=== PATIENT | female | born 2000 | race Caucasian/White ===

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

== ENCOUNTER → 2018-09-01 | Outpatient (CLI) | payer SELFPAY ==
[~2018-09-01] MED LIST: AMOX500T2 PO; FLUT9.9S NSEACH
--- NOTE | 2018-09-01 09:59 | Diagnostic Imaging Report ---
PROCEDURE: US Gallbladder. TECHNIQUE: Multiple real-time grayscale images were obtained over the right upper quadrant in various projections. INDICATION: Abdominal pain. COMPARISON: There are no prior studies available for comparison. FINDINGS: There is no evidence for cholelithiasis or acute cholecystitis and the common bile duct is not dilated. The liver does not appear to be enlarged. There is no focal mass involving the liver and the biliary tree is not abnormally distended. Spectral and color flow imaging of the portal vein and hepatic vein shows that the veins are patent and that there is normal directional flow within the veins. The right kidney is unremarkable. The pancreas is partially secured by bowel gas but shows no definite abnormality. The aorta and inferior vena cava where visualized are unremarkable. IMPRESSION: 1. There is no evidence for an acute abnormality of the right upper quadrant. 2. If clinical concern regarding an underlying abnormality of the gallbladder persists, then a nuclear medicine hepatobiliary scan would be recommended for further study. Dictated by: Dictated on workstation # [id number]
== END ==
LOC: RAD 08:46
PROVIDERS: ATTEND Nurse Practitioner Family
DX: G89.29 Other chronic pain (principal); R10.11 Right upper quadrant pain
CPT/HCPCS: 76705

== ENCOUNTER 2022-01-31 15:20 | Outpatient (CLI) | payer BC ==
[2022-01-31 15:30] VITALS: BP 99/51
[2022-01-31] MEDS ORDERED: PREN-8 PO (15:31)
--- NOTE | 2022-02-01 08:24 | Physician Query-Final Dx ---
STEPHENIE,02/01/22 0824: Clinic Account Progress/Dx Physician Query: Please give diagnosis Please include # weeks gestation Date of Service Jan 31, 2022 at 15:20 WILLIAMS CASTANO MD 02/01/22 1006: Clinic Account Progress/Dx DIAGNOSIS: Diagnosis 27 weeks gestation with decreased movement STEPHENIE,OctFeb 01, 2022 08:24 WILLIAMS CASTANO MD Feb 01, 2022 10:06
== END 2022-01-31 15:43 | disposition home or self-care (01) ==
LOC: WSo 15:20 → MERGE 15:20 → WSo 15:43
PROVIDERS: ATTEND Obstetrics & Gynecology
DX: O36.8120 Decreased fetal movements, second trimester, not applicable or unspecified (principal); Z3A.27 27 weeks gestation of pregnancy
CPT/HCPCS: 99213

== ENCOUNTER → 2022-02-05 | Outpatient (CLI) ==
[~2022-02-05] MED LIST changes: +PREN-8 PO
== END ==
LOC: LABNPT 17:38
PROVIDERS: ATTEND Obstetrics & Gynecology
DX: Z53.9 Procedure and treatment not carried out, unspecified reason (principal)

== ENCOUNTER → 2022-02-05 | Outpatient (CLI) ==
[2022-02-05 17:56] LABS: HEMATOCRIT 32 % (35-52); HEMOGLOBIN 10.8 g/dL (11.5-16.0); MEAN CORPUSCULAR HEMOGLOBIN 31 pg (25-34); MEAN CORPUSCULAR HGB CONC 34 g/dL (32-36); MEAN CORPUSCULAR VOLUME 91 fL (80-99); MEAN PLATELET VOLUME 9.9 fL (9.0-12.2); PLATELET COUNT 278 10^3/uL (130-400); WHITE BLOOD COUNT 9.8 10^3/uL (4.3-11.0)
== END ==
LOC: LABNPT 17:45
PROVIDERS: ATTEND Obstetrics & Gynecology
DX: O36.0190 Maternal care for anti-D [Rh] antibodies, unspecified trimester, not applicable or unspecified (principal); Z23 Encounter for immunization; Z3A.00 Weeks of gestation of pregnancy not specified
CPT/HCPCS: 82950; 85027

== ENCOUNTER → 2022-04-01 | Outpatient (CLI) | payer BC | LOC: LABNPT 11:24 | PROVIDERS: ATTEND Obstetrics & Gynecology | DX: R80.9 Proteinuria, unspecified (principal) | CPT/HCPCS: 82570; 84156 ==

== ENCOUNTER 2022-04-18 16:20 | Inpatient (IN) | payer BC ==
[~2022-04-18] VITALS: Ht 155 cm; Wt 80.6 kg
[2022-04-18] VITALS (16 sets, daily range): BP systolic 107–127; BP diastolic 59–72
[2022-04-18 16:55] LABS: BASOPHILS % (AUTO) 0 % (0-10); EOSINOPHILS % (AUTO) 1 % (0-10); HEMATOCRIT 34 % (35-52); HEMOGLOBIN 11.3 g/dL (11.5-16.0); LYMPHOCYTES # (AUTO) 1.3 10^3/uL (1.0-4.0); LYMPHOCYTES % (AUTO) 17 % (12-44); MEAN CORPUSCULAR HEMOGLOBIN 29 pg (25-34); MEAN CORPUSCULAR HGB CONC 33 g/dL (32-36); MEAN CORPUSCULAR VOLUME 86 fL (80-99); MEAN PLATELET VOLUME 9.9 fL (9.0-12.2); MONOCYTES # (AUTO) 0.6 10^3/uL (0.0-1.0); MONOCYTES % (AUTO) 8 % (0-12); NEUTROPHILS # (AUTO) 5.4 10^3/uL (1.8-7.8); NEUTROPHILS % (AUTO) 74 % (42-75); PLATELET COUNT 232 10^3/uL (130-400); WHITE BLOOD COUNT 7.3 10^3/uL (4.3-11.0)
[2022-04-18 17:16] LABS: URINE CREATININE FOR RATIO 9 MG/DL (30-125)
[2022-04-18 17:17] LABS: ALBUMIN 3.4 GM/DL (3.2-4.5); BILIRUBIN,TOTAL 0.4 MG/DL (0.1-1.0); CALCIUM 9.4 MG/DL (8.5-10.1); CREATININE SERUM 0.64 MG/DL (0.60-1.30); POTASSIUM 3.9 MMOL/L (3.6-5.0); TOTAL PROTEIN 6.3 GM/DL (6.4-8.2); URIC ACID 5.4 MG/DL (2.6-7.2); URINE PROTEIN FOR RATIO ONLY < 6 MG/DL (6-12)
[2022-04-18] MEDS ORDERED: D5 LR IV SOLUTION 1,000 ML IV SCH (18:00)
[2022-04-18] MEDS ORDERED: OXYTOCIN PRE-MIX DRIP 500 ML IV SCH (18:45)
--- NOTE | 2022-04-18 18:51 | History & Physical ---
History and Physical Date Seen by Provider: Apr 18, 2022 Time Seen by Provider: 18:47 This patient is a 22-year-old primigravida female who presents at 38-2/7 weeks gestation with complaints of elevated blood pressure at home in the 140s over 90s. She complains of occasional contractions and increasing pressure. She complains of some takes movement. Her has been uncomplicated to date and her GBS culture was negative. Upon admission patient was found to be sandro with quite a bit of irregularity however during the period of observation patient now sandro every 4 to 5 minutes. She had 1 episode of decreased heart rate for 3 to 4 minutesThat appears to be associated with a prolonged contraction. I discussed with patient management at this point favoring monitoring Continuously through the nightAnd promoting delivery tomorrowWith amniotomy and/or augmentation with Pitocin Allergies are to Keflex Medications are vitamins Medical social and surgical history is are per the antepartum record HEENT exam is normal Neck is supple no lymphadenopathy no thyromegaly Abdomen is gravid soft nontender nondistended Extremity show no clubbing or cyanosis. There is no Homans' sign. Pelvic exam from the presenting nurseWas 1 cm dilated with maybe 30% effaced monitor shows a deceleration as noted above fairly early on in the period of monitoring otherwise this is a category 1 heart rate pattern It is noted that her contractions about every 3 to 4 minutes now Laboratory Tests Test 04/18/22 16:35 Range/Units White Blood Count 7.3 4.3-11.0 10^3/uL Red Blood Count 3.96 3.80-5.11 10^6/uL Hemoglobin 11.3 L 11.5-16.0 g/dL Hematocrit 34 L 35-52 % Mean Corpuscular Volume 86 80-99 fL Mean Corpuscular Hemoglobin 29 25-34 pg Mean Corpuscular Hemoglobin Concent 33 32-36 g/dL Red Cell Distribution Width 12.9 10.0-14.5 % Platelet Count 232 130-400 10^3/uL Mean Platelet Volume 9.9 9.0-12.2 fL Immature Granulocyte % (Auto) 0 % Neutrophils (%) (Auto) 74 42-75 % Lymphocytes (%) (Auto) 17 12-44 % Monocytes (%) (Auto) 8 0-12 % Eosinophils (%) (Auto) 1 0-10 % Basophils (%) (Auto) 0 0-10 % Neutrophils # (Auto) 5.4 1.8-7.8 10^3/uL Lymphocytes # (Auto) 1.3 1.0-4.0 10^3/uL Monocytes # (Auto) 0.6 0.0-1.0 10^3/uL Eosinophils # (Auto) 0.0 0.0-0.3 10^3/uL Basophils # (Auto) 0.0 0.0-0.1 10^3/uL Immature Granulocyte # (Auto) 0.0 0.0-0.1 10^3/uL Urine Protein < 6 L 6-12 MG/DL Urine Creatinine 9 L 30-125 MG/DL Urine Protein/Creatinine Ratio Sodium Level 139 135-145 MMOL/L Potassium Level 3.9 3.6-5.0 MMOL/L Chloride Level 109 H 98-107 MMOL/L Carbon Dioxide Level 17 L 21-32 MMOL/L Anion Gap 13 5-14 MMOL/L Blood Urea Nitrogen 6 L 7-18 MG/DL Creatinine 0.64 0.60-1.30 MG/DL Estimat Glomerular Filtration Rate 126 BUN/Creatinine Ratio 9 Glucose Level 82 70-105 MG/DL Uric Acid 5.4 2.6-7.2 MG/DL Calcium Level 9.4 8.5-10.1 MG/DL Corrected Calcium 9.9 8.5-10.1 MG/DL Total Bilirubin 0.4 0.1-1.0 MG/DL Aspartate Amino Transf (AST/SGOT) 17 5-34 U/L Alanine Aminotransferase (ALT/SGPT) 14 0-55 U/L Alkaline Phosphatase 156 H 40-136 U/L Lactate Dehydrogenase 147 125-220 U/L Total Protein 6.3 L 6.4-8.2 GM/DL Albumin 3.4 3.2-4.5 GM/DL Vital Signs Date Time Temp Pulse Resp B/P (MAP) Pulse Ox O2 Delivery O2 Flow Rate FiO2 04/18/22 16:59 36.3 83 18 98 Room Air 04/18/22 16:52 83 18 111/63 (79) 98 Room Air 04/18/22 16:36 72 18 118/66 (83) Room Air 04/18/22 16:26 36.3 75 18 98 Room Air 04/18/22 16:20 36.3 75 18 127/72 (90) 98 Room Air Vital signs are stable. Patient is afebrile. Assessment and plan 38-2/7 weeks gestation in early labor likely latent labor. There has been a suspicious deceleration in the heart rate tracing. Plan is for continuous monitoring this evening with promotion of delivery tomorrow by amniotomy and/or augmentation with Pitocin. Should the strip show deterioration then that plan could be changed to proceeding with a delivery Patient understands and agrees with our plan 38-2/7 weeks gestation and early labor with suspicious heart rate tracing Allergies and Home Medications Allergies Coded Allergies: cephalexin (Verified Allergy, Unknown, Hives, 01/31/22) Patient Home Medication List Home Medication List Reviewed: Yes Vit W-Ca,Fe,FA(<1 mg) ( Formula) 28 Mg Iron-800 Mcg Tablet, 1 EACH PO, (Reported) Entered as Reported by: SHELBIE SHEIKH on 01/31/22 1531 Last Action: Reviewed Discontinued Medications Amoxicillin (Amoxicillin) 500 Mg Tablet, 1,000 MG PO TID Discontinued Reason: Referral/FU Appt-Addtl Prescribed by: ONELIA CONWAY on 12/22/171416 Last Action: Discontinued Fluticasone Propionate (Flonase Allergy Relief) 9.9 Ml [place].susp, 2 SPR NSEACH DAILY Discontinued Reason: No Longer Taking Prescribed by: ONELIA CONWAY on 12/22/171416 Last Action: Discontinued WILLIAMS CASTANO MD Apr 18, 2022 18:51
[2022-04-18] MEDS: D5 LR IV SOLUTION 1,000 ML IV SCH (22:21)
[2022-04-19] VITALS (63 sets, daily range): BP systolic 87–156; BP diastolic 46–93
[2022-04-19] MEDS: D5 LR IV SOLUTION 1,000 ML IV SCH ×3 (04:55→18:00)
--- NOTE | 2022-04-19 07:13 | Progress Note ---
Standard Progress Note Progress Notes/Assess & Plan Date Seen by a Provider: Apr 19, 2022 Time Seen by a Provider: 07:11 Progress/Assessment & Plan This patient is without complaint. She has contracted off and on throughout the night. She denies rupture membranes or bleeding. She denies headache or shortness of breath Vital Signs Date Time Temp Pulse Resp B/P (MAP) Pulse Ox O2 Delivery O2 Flow Rate FiO2 04/19/22 04:30 65 18 111/71 (84) 04/18/22 23:45 76 18 116/66 (83) 04/18/22 22:20 80 18 110/67 (81) 04/18/22 21:20 93 18 107/59 (75) 04/18/22 20:20 93 18 122/70 (87) 99 04/18/22 19:20 36.4 85 18 118/72 (87) 100 04/18/22 19:20 36.6 85 18 99 Room Air 04/18/22 18:20 36.2 66 18 115/68 (84) 99 Room Air 04/18/22 18:06 72 18 116/68 (84) 99 Room Air 04/18/22 17:52 72 18 118/67 (84) 100 Room Air 04/18/22 17:43 68 18 119/66 (83) 100 Room Air 04/18/22 17:23 66 18 118/64 (82) 98 Room Air 04/18/22 17:07 87 18 117/72 (87) 99 Room Air 04/18/22 16:59 36.3 83 18 98 Room Air 04/18/22 16:52 83 18 111/63 (79) 98 Room Air 04/18/22 16:36 72 18 118/66 (83) Room Air 04/18/22 16:26 36.3 75 18 98 Room Air 04/18/22 16:20 36.3 75 18 127/72 (90) 98 Room Air I & O 04/19/22 07:00 Intake Total 1000 ml Balance 1000 ml Vital signs are stable. Patient is afebrile. The abdomen is gravid soft and nontender Extremities show no clubbing or cyanosis. There is no Homans' sign. monitor shows a category 1 tracing With contractions now every 2 to 3 minutes Assessment and plan Hospital day 2Inpatient 38+ weeks gestation likely an early latent laborAnd with suspicious heart rate tracing on admission last evening. Patient has been observed through the night the tracing has been reassuring we are starting Pitocin to augment her labor and we anticipate a vaginal delivery but would be prepared for if needed WILLIAMS CASTANO MD Apr 19, 2022 07:13
[2022-04-19] MEDS ORDERED: CLINDAMYCIN 900 MG/50 ML IVPB 50 ML IV ONE ×2 (20:30→20:46)
--- NOTE | 2022-04-19 20:34 | Discharge Inst-Surgical ---
Discharge Inst-Surgical Depart Medication/Instructions New, Converted or Re-Newed RX: Other Consults/Follow Up Patient Instructions: As directed Orders & Referrals Follow Up Appt: RTC 1 week for incision check. Call to make follow up appt. for patient in 4 weeks. Wound Care: Remove tiesha, apply benzoin and steri strips. Activity Per routine post instructions. Prescriptions for Percocet Motrin and Colace have been sent to patient's pharmacy From my office Diet as tolerated Patient may shower or tub bathe as desired. Continue home meds Activity Activity as Tolerated: No Diet Discharge Diet: No Restrictions WILLIAMS CASTANO MD Apr 19, 2022 20:34
--- NOTE | 2022-04-19 20:38 | Progress Note ---
Standard Progress Note Progress Notes/Assess & Plan Date Seen by a Provider: Apr 19, 2022 Time Seen by a Provider: 20:34 Progress/Assessment & Plan This patient is without complaint. She has contracted off and on throughout the night. She denies rupture membranes or bleeding. She denies headache or shortness of breath Vital Signs Date Time Temp Pulse Resp B/P (MAP) Pulse Ox O2 Delivery O2 Flow Rate FiO2 04/19/22 04:30 65 18 111/71 (84) 04/18/22 23:45 76 18 116/66 (83) 04/18/22 22:20 80 18 110/67 (81) 04/18/22 21:20 93 18 107/59 (75) 04/18/22 20:20 93 18 122/70 (87) 99 04/18/22 19:20 36.4 85 18 118/72 (87) 100 04/18/22 19:20 36.6 85 18 99 Room Air 04/18/22 18:20 36.2 66 18 115/68 (84) 99 Room Air 04/18/22 18:06 72 18 116/68 (84) 99 Room Air 04/18/22 17:52 72 18 118/67 (84) 100 Room Air 04/18/22 17:43 68 18 119/66 (83) 100 Room Air 04/18/22 17:23 66 18 118/64 (82) 98 Room Air 04/18/22 17:07 87 18 117/72 (87) 99 Room Air 04/18/22 16:59 36.3 83 18 98 Room Air 04/18/22 16:52 83 18 111/63 (79) 98 Room Air 04/18/22 16:36 72 18 118/66 (83) Room Air 04/18/22 16:26 36.3 75 18 98 Room Air 04/18/22 16:20 36.3 75 18 127/72 (90) 98 Room Air I & O 04/19/22 07:00 Intake Total 1000 ml Balance 1000 ml Vital signs are stable. Patient is afebrile. The abdomen is gravid soft and nontender Extremities show no clubbing or cyanosis. There is no Homans' sign. monitor shows a category 1 tracing With contractions now every 2 to 3 minutes Assessment and plan Hospital day 2Inpatient 38+ weeks gestation likely an early latent laborAnd with suspicious heart rate tracing on admission last evening. Patient has been observed through the night the tracing has been reassuring we are starting Pitocin to augment her labor and we anticipate a vaginal delivery but would be prepared for if needed April 19, 2022 Patient has been on Pitocin since 6 AM today. After reaching 40 mL/min and early afternoon Pitocin was halted for an hour. Patient had made little to no changeThrough that time with her cervix being less than 2 cm dilatedAnd maybe 40 to 50% effaced. The presenting part is the vertex and was not in the pelvis. Patient has now been restarted on Pitocin after an hour break and Pitocin has reached 20 milliunits/minHi this time. Patient has been on that level for over an hour and still has demonstrated no significant change. Cervix is less than 2 cm dilated maybe 40 to 50% effaced -2 station vertex and intact Patient is ready to proceed with an alternate route which we have discussed that being . At this point I recommend for failure to progress and high station at term. We discussed surgical risk complications recovery and follow-up as well as the process for . Patient is in agreement and is ready to proceed Vital Signs Date Time Temp Pulse Resp B/P (MAP) Pulse Ox O2 Delivery O2 Flow Rate FiO2 04/19/22 19:27 36.7 78 99 Room Air 04/19/22 19:17 79 123/77 (92) Room Air 04/19/22 19:00 72 18 127/78 (94) Room Air 04/19/22 18:50 73 18 127/75 (92) Room Air 04/19/22 18:44 36.7 04/19/22 18:43 65 18 107/63 (78) Room Air 04/19/22 18:30 65 18 107/63 (78) Room Air 04/19/22 18:15 86 18 114/59 (77) Room Air 04/19/22 18:00 74 18 102/57 (72) Room Air 04/19/22 17:45 69 18 103/67 (79) Room Air 04/19/22 17:30 67 18 113/61 (78) Room Air 04/19/22 17:15 70 18 111/63 (79) Room Air 04/19/22 17:00 74 18 110/57 (74) Room Air 04/19/22 16:45 18 Room Air 04/19/22 16:30 64 18 103/59 (74) Room Air 04/19/22 16:30 64 18 103/59 (74) Room Air 04/19/22 16:15 77 18 111/65 (80) 98 Room Air 04/19/22 16:00 77 18 111/65 (80) 98 Room Air 04/19/22 15:45 85 18 105/57 (73) 98 Room Air 04/19/22 15:30 85 18 105/57 (73) 98 Room Air 04/19/22 15:15 120 18 112/68 (83) Room Air 04/19/22 15:00 83 18 112/68 (83) Room Air 04/19/22 14:45 74 18 109/63 (78) Room Air 04/19/22 14:30 71 18 109/62 (78) Room Air 04/19/22 14:15 68 18 122/66 (84) Room Air 04/19/22 14:00 79 18 124/74 (91) Room Air 04/19/22 13:45 85 18 112/68 (83) Room Air 04/19/22 13:30 83 18 112/63 (79) Room Air 04/19/22 13:15 76 18 112/64 (80) Room Air 04/19/22 13:00 83 18 107/58 (74) Room Air 04/19/22 12:45 67 18 116/66 (83) Room Air 04/19/22 12:30 67 18 116/66 (83) Room Air 04/19/22 12:15 82 18 115/64 (81) Room Air 04/19/22 12:00 67 18 128/72 (90) Room Air 04/19/22 11:45 62 18 119/75 (90) Room Air 04/19/22 11:30 74 18 110/65 (80) Room Air 04/19/22 11:15 67 18 111/62 (78) Room Air 04/19/22 11:00 69 18 121/93 (102) Room Air 04/19/22 10:45 62 18 108/57 (74) Room Air 04/19/22 10:39 36.5 04/19/22 10:30 62 18 128/72 (90) Room Air 04/19/22 10:15 62 18 128/72 (90) Room Air 04/19/22 10:00 69 18 127/74 (91) Room Air 04/19/22 09:45 70 18 124/76 (92) Room Air 04/19/22 09:30 66 18 126/74 (91) Room Air 04/19/22 09:15 65 18 117/65 (82) Room Air 04/19/22 09:00 65 18 117/65 (82) Room Air 04/19/22 08:45 74 18 109/70 (83) Room Air 04/19/22 08:30 67 18 109/70 (83) Room Air 04/19/22 08:15 81 18 109/70 (83) Room Air 04/19/22 08:00 74 18 121/70 (87) Room Air 04/19/22 07:45 74 18 119/72 (88) Room Air 04/19/22 07:30 36.5 74 18 119/72 (88) Room Air 04/19/22 07:15 63 18 115/69 (84) 04/19/22 07:00 69 18 132/75 (94) 04/19/22 04:30 65 18 111/71 (84) 04/18/22 23:45 76 18 116/66 (83) 04/18/22 22:20 80 18 110/67 (81) 04/18/22 21:20 93 18 107/59 (75) I & O 04/19/22 07:00 Intake Total 1000 ml Balance 1000 ml Vital signs are stable. Patient is afebrile. Abdomen is gravid soft and nondistended Extremities show no clubbing cyanosis. There is no Homans' sign. Pelvic exam shows a cervix little more than 1 cm dilated but less than 2. Cervix is about 40% effaced. Presenting part is the vertex at a -2 to -3 station membranes are intact monitor shows a category 1 tracing with contractions about every 2 minutesPitocin is on 20 milliunits/min but we are stopping that now Assessment and plan Term at 38+ weeks gestation with adequate trial of labor augmentation with Pitocin. Presenting part remains at a high station with no descent and with no significant change in the status of the cervix through the day. Plan is to proceed with delivery now WILLIAMS CASTANO MD Apr 19, 2022 20:38
[2022-04-19] MEDS ORDERED: CITRIC ACID/SOB CIT (BICITRA) 30 ML UDC PO ONE (20:45)
[2022-04-19] MEDS ORDERED: TETANUS,DIPTH,PERTUSS P/F (BOOSTRIX) 0.5 ML VIAL IM ONE (20:45)
[2022-04-19] MEDS ORDERED: FAMOTIDINE 20MG/2ML IV (PEPCID) IV ONE (20:45)
[2022-04-19] MEDS ORDERED: LACTATED RINGERS 1,000 ML IV PRN ×2 (20:45)
[2022-04-19] MEDS ORDERED: fentaNYL INJ 100 MCG/2 ML AMP IVP PRN (20:45)
[2022-04-19] MEDS ORDERED: METOCLOPRAMIDE INJ 10 MG/2 ML (REGLAN) IV ONE (20:45)
[2022-04-19] MEDS ORDERED: D5 LR IV SOLUTION 1,000 ML IV SCH (20:45)
[2022-04-19] MEDS ORDERED: ONDANSETRON 4 MG/2 ML (SDV) Z0FRAN IVP PRN (20:45)
[2022-04-19] MEDS ORDERED: CITRIC ACID/SOB CIT (BICITRA) 30 ML UDC ONE (20:49)
[2022-04-19] MEDS ORDERED: METOCLOPRAMIDE INJ 10 MG/2 ML (REGLAN) ONE (20:49)
[2022-04-19] MEDS ORDERED: FAMOTIDINE 20MG/2ML IV (PEPCID) ONE (20:49)
[2022-04-19] MEDS ORDERED: DOCUSATE SODIUM 100 MG (COLACE) CAP PO SCH (21:00)
[2022-04-19] MEDS ORDERED: fentaNYL INJ 100 MCG/2 ML AMP ONE (21:04)
[2022-04-19] MEDS: DOCUSATE SODIUM 100 MG (COLACE) CAP PO SCH (21:20)
[2022-04-19] MEDS ORDERED: OXYTOCIN PRE-MIX DRIP 1,000 ML IV ONE (21:38)
[2022-04-19] MEDS ORDERED: ONDANSETRON 4 MG/2 ML (SDV) Z0FRAN ONE (21:50)
[2022-04-19] MEDS ORDERED: diphenhydrAMINE 50 MG/ML INJ (BENADRYL) IV PRN (22:30)
[2022-04-19] MEDS ORDERED: ONDANSETRON 4 MG/2 ML (SDV) Z0FRAN IV PRN (22:30)
[2022-04-19] MEDS ORDERED: NALOXONE 0.4 MG/ML 1 ML (NARCAN) VIAL IV PRN (22:30)
[2022-04-19] MEDS: KETOROLAC 30 MG/ML VIAL IVP SCH (23:39)
[2022-04-20 00:21] VITALS: BP 115/58
[2022-04-20] MEDS: OXYTOCIN PRE-MIX DRIP 500 ML IV SCH ×2 (00:42→04:45)
[2022-04-20] MEDS: KETOROLAC 30 MG/ML VIAL IVP SCH ×2 (01:00→06:49)
[2022-04-20] MEDS: oxyCODONE/APAP 10/325MG (PERCOCET 10) TABLET PO PRN ×3 (01:52→16:03)
[2022-04-20 04:27] VITALS: BP 131/60
[2022-04-20 09:10] VITALS: BP 127/72
[2022-04-20] MEDS: DOCUSATE SODIUM 100 MG (COLACE) CAP PO SCH ×2 (09:10→22:17)
--- NOTE | 2022-04-20 10:54 | OPERATIVE REPORT ---
DATE OF SERVICE: 04/19/2022 PREOPERATIVE DIAGNOSES: Term in labor with failure to progress. POSTOPERATIVE DIAGNOSES: Term in labor with failure to progress. OPERATIVE PROCEDURE: Primary low transverse delivery of a viable male infant with Apgars of 8 and 8 at 1 and 5 minutes respectively, weight of 7 pounds 12 ounces. Cord blood pH that is pending and a time of 21:47. OPERATIVE DESCRIPTION: With the patient in the supine position under satisfactory spinal analgesia, the patient was prepped and draped in the usual fashion for abdominal surgery. Shaver catheter was placed in the urinary bladder. A Pfannenstiel incision was made through skin with scalpel, the patient's abdomen entered in the usual manner. Bladder retractor placed in position, clean scalpel used to make a 4 cm hysterotomy incision transversely across the lower uterine segment. That incision was extended bluntly. Randall forceps were applied to facilitate the delivery of a vigorous viable male with Apgars and stats as noted above. The was bulb suctioned on delivery of the head and again on completion of delivery. The umbilical cord was doubly clamped and cut and the infant was passed to the pediatric nurse in attendance for delivery. Cord bloods were obtained. Placenta delivered spontaneously Pa. It was normal with a 3-vessel cord. The uterus was exteriorized, anterior wiped clean with a wet laparotomy sponge. Uterine incision then closed with a running locked suture of 2-0 Vicryl. Hemostasis was relatively satisfactory. However, the uterus was quite boggy. A modified B-Mock suture was placed using 2-0 chromic sutures in the usual modified manner. The uterus was compressed nicely with the B-Mock sutures. The uterus was now turned to the abdominal cavity. All blood clot and debris removed from the abdominal cavity. With sponge and needle counts correct, hemostasis assured. The anterior parietal peritoneum was closed with running suture of 2-0 Vicryl. Rectus muscles were closed with that suture as well. The rectus fascia was closed with 2-0 Vicryl, subcutaneous tissue was closed with 2-0 Vicryl and the skin was stapled. Sponge and needle counts were correct on completion of the procedure. Blood loss was around 500 mL. The patient tolerated the procedure well and was transferred to recovery room in stable condition. The had been taken stable to the full term nursery under the care of the pediatric nurse. Job ID: [id number] DocumentID: [id number] Dictated Date: 04/20/2022 06:05:34 Shellfish Dredge Operator Date: 04/20/2022 10:53:29 Dictated By: WILLIAMS CASTANO MD
--- NOTE | 2022-04-20 12:21 | Anesthesia-Regional Post-Op ---
Regional Patient Condition Mental Status: Alert, Oriented x3 Circulation: Same as Pre-Op Headache: Absent Sensation: Full Recovery Motor Block: Absent Post Op Complications Complications None Follow Up Care/Instructions Patient Instructions None needed. Anesthesia/Patient Condition Patient is doing well, no complaints, stable vital signs, no apparent adverse anesthesia problems. No complications reported per nursing. MELY DEAN CRNA Apr 20, 2022 12:21
[2022-04-20] MEDS: IBUPROFEN 800 MG (MOTRIN) TAB PO SCH ×2 (13:40→18:50)
[2022-04-20 15:00] VITALS: BP 119/69
[2022-04-20 19:37] VITALS: BP 109/63
[2022-04-21] MEDS: IBUPROFEN 800 MG (MOTRIN) TAB PO SCH ×2 (01:14→09:52)
[2022-04-21 01:22] VITALS: BP 101/58
[2022-04-21] MEDS: oxyCODONE/APAP 10/325MG (PERCOCET 10) TABLET PO PRN (09:51)
[2022-04-21] MEDS: DOCUSATE SODIUM 100 MG (COLACE) CAP PO SCH (09:51)
[2022-04-21 09:52] VITALS: BP 124/74
--- NOTE | 2022-04-21 10:39 | Progress Note ---
Standard Progress Note Progress Notes/Assess & Plan Date Seen by a Provider: Apr 21, 2022 Time Seen by a Provider: 10:38 Progress/Assessment & Plan This patient is without complaint. She has contracted off and on throughout the night. She denies rupture membranes or bleeding. She denies headache or shortness of breath Vital Signs Date Time Temp Pulse Resp B/P (MAP) Pulse Ox O2 Delivery O2 Flow Rate FiO2 04/19/22 04:30 65 18 111/71 (84) 04/18/22 23:45 76 18 116/66 (83) 04/18/22 22:20 80 18 110/67 (81) 04/18/22 21:20 93 18 107/59 (75) 04/18/22 20:20 93 18 122/70 (87) 99 04/18/22 19:20 36.4 85 18 118/72 (87) 100 04/18/22 19:20 36.6 85 18 99 Room Air 04/18/22 18:20 36.2 66 18 115/68 (84) 99 Room Air 04/18/22 18:06 72 18 116/68 (84) 99 Room Air 04/18/22 17:52 72 18 118/67 (84) 100 Room Air 04/18/22 17:43 68 18 119/66 (83) 100 Room Air 04/18/22 17:23 66 18 118/64 (82) 98 Room Air 04/18/22 17:07 87 18 117/72 (87) 99 Room Air 04/18/22 16:59 36.3 83 18 98 Room Air 04/18/22 16:52 83 18 111/63 (79) 98 Room Air 04/18/22 16:36 72 18 118/66 (83) Room Air 04/18/22 16:26 36.3 75 18 98 Room Air 04/18/22 16:20 36.3 75 18 127/72 (90) 98 Room Air I & O 04/19/22 07:00 Intake Total 1000 ml Balance 1000 ml Vital signs are stable. Patient is afebrile. The abdomen is gravid soft and nontender Extremities show no clubbing or cyanosis. There is no Homans' sign. monitor shows a category 1 tracing With contractions now every 2 to 3 minutes Assessment and plan Hospital day 2Inpatient 38+ weeks gestation likely an early latent laborAnd with suspicious heart rate tracing on admission last evening. Patient has been observed through the night the tracing has been reassuring we are starting Pitocin to augment her labor and we anticipate a vaginal delivery but would be prepared for if needed April 19, 2022 Patient has been on Pitocin since 6 AM today. After reaching 40 mL/min and early afternoon Pitocin was halted for an hour. Patient had made little to no changeThrough that time with her cervix being less than 2 cm dilatedAnd maybe 40 to 50% effaced. The presenting part is the vertex and was not in the pelvis. Patient has now been restarted on Pitocin after an hour break and Pitocin has reached 20 milliunits/minHi this time. Patient has been on that level for over an hour and still has demonstrated no significant change. Cervix is less than 2 cm dilated maybe 40 to 50% effaced -2 station vertex and intact Patient is ready to proceed with an alternate route which we have discussed that being . At this point I recommend for failure to progress and high station at term. We discussed surgical risk complications recovery and follow-up as well as the process for . Patient is in agreement and is ready to proceed Vital Signs Date Time Temp Pulse Resp B/P (MAP) Pulse Ox O2 Delivery O2 Flow Rate FiO2 04/19/22 19:27 36.7 78 99 Room Air 04/19/22 19:17 79 123/77 (92) Room Air 04/19/22 19:00 72 18 127/78 (94) Room Air 04/19/22 18:50 73 18 127/75 (92) Room Air 04/19/22 18:44 36.7 04/19/22 18:43 65 18 107/63 (78) Room Air 04/19/22 18:30 65 18 107/63 (78) Room Air 04/19/22 18:15 86 18 114/59 (77) Room Air 04/19/22 18:00 74 18 102/57 (72) Room Air 04/19/22 17:45 69 18 103/67 (79) Room Air 04/19/22 17:30 67 18 113/61 (78) Room Air 04/19/22 17:15 70 18 111/63 (79) Room Air 04/19/22 17:00 74 18 110/57 (74) Room Air 04/19/22 16:45 18 Room Air 04/19/22 16:30 64 18 103/59 (74) Room Air 04/19/22 16:30 64 18 103/59 (74) Room Air 04/19/22 16:15 77 18 111/65 (80) 98 Room Air 04/19/22 16:00 77 18 111/65 (80) 98 Room Air 04/19/22 15:45 85 18 105/57 (73) 98 Room Air 04/19/22 15:30 85 18 105/57 (73) 98 Room Air 04/19/22 15:15 120 18 112/68 (83) Room Air 04/19/22 15:00 83 18 112/68 (83) Room Air 04/19/22 14:45 74 18 109/63 (78) Room Air 04/19/22 14:30 71 18 109/62 (78) Room Air 04/19/22 14:15 68 18 122/66 (84) Room Air 04/19/22 14:00 79 18 124/74 (91) Room Air 04/19/22 13:45 85 18 112/68 (83) Room Air 04/19/22 13:30 83 18 112/63 (79) Room Air 04/19/22 13:15 76 18 112/64 (80) Room Air 04/19/22 13:00 83 18 107/58 (74) Room Air 04/19/22 12:45 67 18 116/66 (83) Room Air 04/19/22 12:30 67 18 116/66 (83) Room Air 04/19/22 12:15 82 18 115/64 (81) Room Air 04/19/22 12:00 67 18 128/72 (90) Room Air 04/19/22 11:45 62 18 119/75 (90) Room Air 04/19/22 11:30 74 18 110/65 (80) Room Air 04/19/22 11:15 67 18 111/62 (78) Room Air 04/19/22 11:00 69 18 121/93 (102) Room Air 04/19/22 10:45 62 18 108/57 (74) Room Air 04/19/22 10:39 36.5 04/19/22 10:30 62 18 128/72 (90) Room Air 04/19/22 10:15 62 18 128/72 (90) Room Air 04/19/22 10:00 69 18 127/74 (91) Room Air 04/19/22 09:45 70 18 124/76 (92) Room Air 04/19/22 09:30 66 18 126/74 (91) Room Air 04/19/22 09:15 65 18 117/65 (82) Room Air 04/19/22 09:00 65 18 117/65 (82) Room Air 04/19/22 08:45 74 18 109/70 (83) Room Air 04/19/22 08:30 67 18 109/70 (83) Room Air 04/19/22 08:15 81 18 109/70 (83) Room Air 04/19/22 08:00 74 18 121/70 (87) Room Air 04/19/22 07:45 74 18 119/72 (88) Room Air 04/19/22 07:30 36.5 74 18 119/72 (88) Room Air 04/19/22 07:15 63 18 115/69 (84) 04/19/22 07:00 69 18 132/75 (94) 04/19/22 04:30 65 18 111/71 (84) 04/18/22 23:45 76 18 116/66 (83) 04/18/22 22:20 80 18 110/67 (81) 04/18/22 21:20 93 18 107/59 (75) I & O 04/19/22 07:00 Intake Total 1000 ml Balance 1000 ml Vital signs are stable. Patient is afebrile. Abdomen is gravid soft and nondistended Extremities show no clubbing cyanosis. There is no Homans' sign. Pelvic exam shows a cervix little more than 1 cm dilated but less than 2. Cervix is about 40% effaced. Presenting part is the vertex at a -2 to -3 station membranes are intact monitor shows a category 1 tracing with contractions about every 2 minutesPitocin is on 20 milliunits/min but we are stopping that now Assessment and plan Term at 38+ weeks gestation with adequate trial of labor augmentation with Pitocin. Presenting part remains at a high station with no descent and with no significant change in the status of the cervix through the day. Plan is to proceed with delivery now April 21, 2022 This is a late entry for April 20, 2022 patient was seen at [place] [id number] in the morning. Patient was ambulating, voiding, tolerating oral intake well and active antral. Vital signs are stable she was afebrile. The abdomen was benign. Surgical incision is clean dry and intact. Extremities show no clubbing cyanosis. There is no Homans' sign. Assessment and plan Postoperative day #1 status post primary delivery doing well. Plan is for routine convalescent care. April 21, 2022 Patient is without complaint. She is ambulating, voiding, tolerating oral intake well and has good pain control. She is requesting discharge home. Vital Signs Date Time Temp Pulse Resp B/P (MAP) Pulse Ox O2 Delivery O2 Flow Rate FiO2 04/21/22 09:52 36.4 69 18 124/74 (91) 98 Room Air 04/21/22 01:22 36.3 95 18 101/58 (72) 97 Room Air 04/20/22 19:37 36.6 118 18 109/63 (78) 97 Room Air 04/20/22 15:00 36.7 109 16 119/69 (86) 97 Room Air I & O 04/21/22 07:00 Intake Total 1 ml Output Total 3900 ml Balance -3899 ml Vital signs are stable. Patient is afebrile. The abdomen is benign. The surgical incision clean dry and intact. Extremities show no clubbing or cyanosis. There is no Homans' sign. Assessment and plan Postoperative day #2 status postPrimary delivery at 38 weeks gestation doing well. Plan for discharge home with follow-up in clinic Final Diagnosis 38-week primary delivery WILLIAMS CASTANO MD Apr 21, 2022 10:39
--- NOTE | 2022-04-21 10:42 | Discharge Summary ---
Discharge Summary 38-week primary delivery This patient is a 22-year-old 1 para 0 patient at time of admissionAdmitted fromMy clinic with concern for elevated blood pressure.She was found to be sandro and during the period of observation had a 3 to 4-minute deceleration heart rate.Patient was admitted for observation overnight.On the morning ofJuly atient's contractions were augmented with Pitocin. She laboredIneffectively through the day. In the evening ofJuly 2021 decision made to proceed with delivery due to uterine inertia and failure to progress and high station at term. Patient did undergo deliveryThat was uneventful and patient recovered adequately. On postoperative day #1 patient was ambulating, voiding, tolerating oral intake well has good pain control. She had routine care through the day. Now on postoperative day #2 patient is ambulating, voiding, tolerating oral intake has good pain control and is requesting discharge home. Decision was patient discharged home. Principal diagnosis this hospitalization is 38-week primary delivery secondary diagnoses are suspicious heart rate tracingMild PIH,. To progress in labor/isolation at term/CPD Operations procedure include monitoring/IV fluids/Spinal analgesia/primary delivery Patient was given appropriate discharge instructions verbally and in writing catheters placed in chart. Discharge medications were Percocet Motrin and WILLIAMS Gonsales MD Apr 21, 2022 10:42
[2022-04-21 14:14] VITALS: BP 111/62
[2022-04-24] MEDS ORDERED: IBUPROFEN 800 MG (MOTRIN) TAB PO SCH (21:00)
== END 2022-04-21 15:45 | disposition home or self-care (01) | DRG 788 ==
LOC: WSo 16:20 → LDRP 18:20 → WSo 18:46 → LDRP 04-19 06:07
PROVIDERS: ADMIT Obstetrics & Gynecology; ATTEND Obstetrics & Gynecology
PROC: 10D00Z1 Extraction of Products of Conception, Low, Open Approach (ICD-10-PCS; principal; 2022-04-20)
DX: O62.0 Primary inadequate contractions (principal); Z3A.38 38 weeks gestation of pregnancy; Z37.0 Single live birth; O76 Abnormality in fetal heart rate and rhythm complicating labor and delivery; O13.4 Gestational [pregnancy-induced] hypertension without significant proteinuria, complicating childbirth; O33.9 Maternal care for disproportion, unspecified
CPT/HCPCS: 36415; 80053; 82570; 83033; 83615; 84156; 84550; 85025; 86850; 86900; 86901; 99212